=== PATIENT | male | born 1995 | race Caucasian/White ===

== ENCOUNTER 2021-01-10 19:53 | Emergency (ER) | payer BC, MEDICAID ==
[~2021-01-10] VITALS: Ht 180.3 cm; Wt 54.5 kg
[2021-01-10 20:08] VITALS: BP 131/75
[2021-01-10] MEDS ORDERED: PRED20TA PO (23:37)
[2021-01-10] MEDS ORDERED: LIDO20SO16 PO (23:37)
[2021-01-10] MEDS ORDERED: CLIN-97 PO (23:37)
== END 2021-01-10 23:45 | disposition home or self-care (01) ==
LOC: ER 19:53
DX: K04.7 Periapical abscess without sinus (principal); K08.89 Other specified disorders of teeth and supporting structures; Z88.5 Allergy status to narcotic agent; Z79.2 Long term (current) use of antibiotics; Z79.899 Other long term (current) drug therapy
CPT/HCPCS: 99283